=== PATIENT | male | born 1945 | race Caucasian/White ===

== ENCOUNTER 2017-02-04 09:45 | Emergency (ER) | payer MEDICARE, OTHER ==
[~2017-02-04] VITALS: Ht 177.8 cm; Wt 83.0 kg
[2017-02-04 10:05] VITALS: BP 136/72
[2017-02-04] MEDS ORDERED: TdaP Vaccine 0.5ml Syr IM ONE (10:15)
[2017-02-04 10:26] LABS: BASOPHILS % (AUTO) 1.1 % (0.0-2.0); EOSINOPHILS % (AUTO) 1.4 % (0.0-3.0); LYMPHOCYTES % (AUTO) 24.5 % (20.0-45.0); MEAN CORPUSCULAR HEMOGLOBIN 32.5 PG (27.0-31.0); MEAN CORPUSCULAR HGB CONC 32.7 G/DL (32.0-36.0); MEAN CORPUSCULAR VOLUME 99 FL (80-99); MEAN PLATELET VOLUME 7.6 FL (6.5-10.1); MONOCYTES % (AUTO) 8.1 % (1.0-10.0); NEUTROPHILS % (AUTO) 64.9 % (45.0-75.0); PLATELET COUNT 207 K/UL (150-450); RED BLOOD COUNT 4.79 M/UL (4.70-6.10); RED CELL DISTRIBUTION WIDTH 13.2 % (11.6-14.8); WHITE BLOOD COUNT 6.7 K/UL (4.8-10.8)
[2017-02-04 10:36] LABS: APPEARANCE,URINE CLEAR; INR 0.9 (0.9-1.1); KETONES,URINE NEGATIVE (NEGATIVE); LEUKOCYTE ESTERASE ,URINE NEGATIVE (NEGATIVE); NITRITE,URINE NEGATIVE (NEGATIVE); PH,URINE 6 (4.5-8.0); PROTEIN,URINE NEGATIVE (NEGATIVE); PROTHROMBIN TIME 9.4 SEC (9.30-11.50); UROBILINOGEN,URINE NORMAL MG/DL (0.0-1.0)
[2017-02-04 10:47] LABS: TROPONIN I < 0.30 ng/mL (<=0.30)
[2017-02-04 10:52] LABS: ALBUMIN/GLOBULIN RATIO 1.9 (1.0-2.7); CALCIUM 9.7 mg/dL (8.6-10.2); CREATININE 1.2 mg/dL (0.7-1.2); GLOMERULAR FILTRATION RATE 59.9 mL/min (>60); POTASSIUM 4.1 mEQ/L (3.4-4.9)
[2017-02-04] MEDS ORDERED: Bacitracin Oint UD TOPIC ONE (10:58)
--- NOTE | 2017-02-04 11:01 | Diagnostic Imaging Report ---
Indications: Fall, trauma, nasal injury, syncopal episode Technique: Spiral images obtained through the facial bones. No IV contrast utilized. Multiplanar reconstructions were generated.Total dose length product 719 mGycm. CTDIvol(s) 28mGy. Dose reduction achieved using automated exposure control Comparison: None Findings: No evidence of acute fracture. No worrisome sinus air-fluid levels are demonstrated. There is what appears to be a fracture through the root of the left second maxillary premolar. There is considerable lucency around the root of this tooth. There is considerable opacification of the left maxillary sinus, the majority of which is opacified with soft tissue. There is minimal mucosal thickening of the floor of the right maxillary sinus. The remaining sinuses are clear. There is minimal if any nasal soft tissue swelling. The remaining facial soft tissues are unremarkable. Impression: No acute bony trauma Acuity indeterminate fracture of the left second maxillary premolar. Surrounding lucency likely indicates loosening or periapical infection Left maxillary sinus disease. Minimal right maxillary sinus disease The CT scanner at [facility] is accredited by the [employer] and the scans are performed using protocols designed to limit radiation exposure to as low as reasonably achievable to attain images of sufficient resolution adequate for diagnostic evaluation.
[2017-02-04 11:02] LABS: CKMB 4.8 ng/mL (< 6.7)
[2017-02-04] MEDS ORDERED: Hydrogen Peroxide 120ml Bottle TOPIC ONE (11:02)
--- NOTE | 2017-02-04 11:04 | Diagnostic Imaging Report ---
Indication: FALL, near syncopal episode Technique: spiral acquisitions obtained through the brain. Angled axial and coronal 5 x 5 mm slices were reconstructed. No IV contrast utilized. Radiation dose was minimized using automated exposure control Total dose length product 1004 and 7 mGycm. CTDIvol(s) 70 mGy Comparison: none FINDINGS: No acute hemorrhage or edema. No mass effect or midline shift. There is minimal age-related enlargement of the ventricles and extra axial CSF spaces. Normal forbes-white differentiation. Visualized orbits are unremarkable. Intact calvarium. IMPRESSION: Chronic and age-related changes. Negative for acute intracranial bleed or mass effect The CT scanner at [facility] is accredited by the [employer] and the scans are performed using protocols designed to limit radiation exposure to as low as reasonably achievable to attain images of sufficient resolution adequate for diagnostic evaluation
--- NOTE | 2017-02-04 11:05 | Diagnostic Imaging Report ---
Indication: Chest pain Technique: One view of the chest Comparison: 04/01/2010 Findings: Lungs and pleural spaces are clear. Heart size is normal. Impression: No acute process
[2017-02-04 13:14] VITALS: BP 116/75
--- NOTE | 2017-02-04 13:18 | Emergency Room Report ---
History of Present Illness General Chief Complaint: Laceration Source: Patient Present Illness HPI This patient presents status post fall. She is accompanied by his . This morning around 5 AM the patient was walking out to his home office and his noticed that he was unsteady on his feet. Of note, the patient did drink a large amount of alcohol the night prior and did not get much sleep. Patient states he has bad insomnia and typically only gets 4 hours of sleep at night. He states it this morning he woke up at 2 AM and was unable to sleep. He states that on a daily basis he drinks a few shots of vodka prior to bedtime. The patient has no recollection of the event. He states that when he fell and she went to him he was awake but she did have to assist him up. He hit his face and shins the on the floor. He denies headache or neck pain. He denies back pain. He has never had a syncopal episode in the past. He is unsure if he fell and tripped or if he fainted. He denies chest pain. He was not ill yesterday. Denies abdominal pain. He has no other complaints. Allergies: Coded Allergies: No Known Allergies (Unverified , 02/04/17) Patient History Past Medical History: see triage record, DM, HTN Social History: Reports: alcohol use, Denies: drug use, smoking Reviewed Nursing Documentation: PMH: Agreed, PSxH: Agreed Nursing Documentation-PMH Past Medical History: No Stated History Review of Systems All Other Systems: negative except mentioned in HPI Physical Exam Vital Signs Date Time Temp Pulse Resp B/P Pulse Ox O2 Delivery O2 Flow Rate FiO2 02/04/17 09:53 97.5 65 20 130/68 96 Room Air Sp02 EP Interpretation: reviewed, normal General Appearance: no apparent distress, alert, GCS 15, non-toxic Head: normocephalic, other - 2 cm vertical laceration over bridge of the nose. Abrasion over R. upper lip. Contusion of lower lip. Eyes: bilateral eye PERRL, bilateral eye normal inspection ENT: hearing grossly normal, normal pharynx, no angioedema, normal voice Neck: full range of motion, supple/symm/no masses Respiratory: chest non-tender, lungs clear, normal breath sounds, speaking full sentences Cardiovascular #1: regular rate, rhythm, no edema Gastrointestinal: normal bowel sounds, non tender, soft, non-distended, no guarding, no rebound Rectal: deferred Musculoskeletal: back normal, gait/station normal, normal range of motion, non- tender Neurologic: alert, oriented x3, responsive, motor strength/tone normal, sensory intact, speech normal Psychiatric: judgement/insight normal, memory normal, mood/affect normal, no suicidal/homicidal ideation Skin: normal color, no rash, warm/dry, well hydrated, other - abrasions bilateral shins Procedures Laceration/Wound Repair Laceration/Wound Repair : Consent: Verbal Wound Location: face Wound's Depth, Shape: superficial Wound Length (cm): 2 Wound Explored: clean Irrigated w/ Saline (ccs): 200 Wound Repaired With: Dermabond Patient Tolerated: Well Complications: None Medical Decision Making Diagnostic Impression: Primary Impression: Syncope Additional Impressions: Fall Facial laceration Facial abrasion Closed head injury ER Course She presents to the fall. Am unsure whether this is a syncopal episode or a mechanical fall versus index of a mechanical fall and EtOH. Regardless, the patient is a high-risk for any arrhythmia. There was no obvious arrhythmia on EKG or telemetry although the patient does have sinus bradycardia. Laboratory workup to include CBC, CMP and cardiac enzymes were negative. The patient suffered a facial laceration that was repaired with Dermabond. He also has abrasions on his face and a contusion of his lip and some abrasions on his shins. He was given IV fluids. I had planned on giving him a second liter of IV fluids, however, the patient demanded to leave. I also planned to admit this patient for syncope and further cardiac workup. However, the patient left AGAINST MEDICAL ADVICE. The patient is flying to [place] this evening. I did educate the patient extensively and thoroughly that I could not be sure that this patient did not have a cardiac event. The patient and his both indicated understanding. The patient is also educated of the dangers of alcohol abuse and substance abuse. The patient was invited to return if he changed his mind. The patient is also found to have a cracked molar tooth. The patient reports that he lost his filling on this tooth previously. He has not been to a dentist at this time. I will give the patient a course of antibiotics for the pain. Patient was also instructed that he should have this followed up closely with a dentist. He indicated understanding. Labs Test 02/04/17 10:12 White Blood Count 6.7 K/UL (4.8-10.8) Red Blood Count 4.79 M/UL (4.70-6.10) Hemoglobin 15.6 G/DL (14.2-18.0) Hematocrit 47.6 % (42.0-52.0) Mean Corpuscular Volume 99 FL (80-99) Mean Corpuscular Hemoglobin 32.5 PG (27.0-31.0) Mean Corpuscular Hemoglobin Concent 32.7 G/DL (32.0-36.0) Red Cell Distribution Width 13.2 % (11.6-14.8) Platelet Count 207 K/UL (150-450) Mean Platelet Volume 7.6 FL (6.5-10.1) Neutrophils (%) (Auto) 64.9 % (45.0-75.0) Lymphocytes (%) (Auto) 24.5 % (20.0-45.0) Monocytes (%) (Auto) 8.1 % (1.0-10.0) Eosinophils (%) (Auto) 1.4 % (0.0-3.0) Basophils (%) (Auto) 1.1 % (0.0-2.0) Prothrombin Time 9.4 SEC (9.30-11.50) Prothromb Time International Ratio 0.9 (0.9-1.1) Activated Partial Thromboplast Time 25 SEC (23-33) Urine Color Pale yellow Urine Appearance Clear Urine pH 6 (4.5-8.0) Urine Specific Patterson 1.015 (1.005-1.035) Urine Protein Negative (NEGATIVE) Urine Glucose (UA) Negative (NEGATIVE) Urine Ketones Negative (NEGATIVE) Urine Occult Blood Negative (NEGATIVE) Urine Nitrite Negative (NEGATIVE) Urine Bilirubin Negative (NEGATIVE) Urine Urobilinogen Normal MG/DL (0.0-1.0) Urine Leukocyte Esterase Negative (NEGATIVE) Sodium Level 146 mEQ/L (135-145) Potassium Level 4.1 mEQ/L (3.4-4.9) Chloride Level 104 mEQ/L (98-107) Carbon Dioxide Level 28 mEQ/L (20-30) Anion Gap 14 (5-15) Blood Urea Nitrogen 15 mg/dL (7-23) Creatinine 1.2 mg/dL (0.7-1.2) Estimat Glomerular Filtration Rate 59.9 mL/min (>60) Glucose Level 132 mg/dL (74-106) Calcium Level 9.7 mg/dL (8.6-10.2) Total Bilirubin 0.2 mg/dL (0.0-1.2) Aspartate Amino Transf (AST/SGOT) 76 U/L (5-40) Alanine Aminotransferase (ALT/SGPT) 86 U/L (3-41) Alkaline Phosphatase 75 U/L (40-129) Total Creatine Kinase 128 U/L (38-174) Creatine Kinase MB 4.8 ng/mL (< 6.7) Creatine Kinase MB Relative Index 3.7 Troponin I < 0.30 ng/mL (<=0.30) Total Protein 7.0 g/dL (6.6-8.7) Albumin 4.6 g/dL (3.5-5.2) Globulin 2.4 g/dL Albumin/Globulin Ratio 1.9 (1.0-2.7) Serum Alcohol 230 mg/dL EKG Diagnostic Results Rate: normal ST Segments: no acute changes Other Impression S.bradycardia Rhythm Strip Diag. Results EP Interpretation: yes Rate: 50's Rhythm: no PVC's, no ectopy Other Impression S.bradycardia Chest X-Ray Diagnostic Results EP Interpretation: Yes Findings: no consolidation, no effusion, no pneumothorax, no acute cardiopulmonary disease Number of Views: 1 CT/MRI/US Diagnostic Results CT/MRI/US Diagnostic Results : Imaging Test Ordered: CT head, CT facial bones. Impression Impression: No acute bony trauma Acuity indeterminate fracture of the left second maxillary premolar. Surrounding lucency likely indicates loosening or periapical infection Left maxillary sinus disease. Minimal right maxillary sinus disease Last Vital Signs Date Time Temp Pulse Resp B/P Pulse Ox O2 Delivery O2 Flow Rate FiO2 02/04/17 10:20 57 13 Room Air 02/04/17 10:05 98.0 136/72 96 Disposition: AGAINST MEDICAL ADVICE Condition: Improved Referrals: NON PHYSICIAN (PCP) SAMPSON FELIZ D.O. Feb 04, 2017 13:18
[2017-02-04] MEDS ORDERED: CLINDAMYCIN HC300 MG ORAL (13:20)
--- NOTE | 2017-02-09 22:45 | Cardiology Report ---
APPROVED REPORT EKG Measurement Heart [id number] AL [id number] Sinus bradycardia with sinus arrhythmia Cannot rule out Anterior infarct, age undetermined Abnormal ECG
== END 2017-02-04 13:31 | disposition left against medical advice (07) ==
LOC: EMR 10:10
DX: R55 Syncope and collapse (principal); S01.21XA Laceration without foreign body of nose, initial encounter; W19.XXXA Unspecified fall, initial encounter; S00.511A Abrasion of lip, initial encounter; S80.812A Abrasion, left lower leg, initial encounter; S80.811A Abrasion, right lower leg, initial encounter; S00.531A Contusion of lip, initial encounter; Y92.018 Other place in single-family (private) house as the place of occurrence of the external cause; E11.9 Type 2 diabetes mellitus without complications; I10 Essential (primary) hypertension; F10.10 Alcohol abuse, uncomplicated
CPT/HCPCS: 12011; 36415; 70450; 70486; 71010; 80053; 81003; 82550; 82553; 82962; 84484; 85025; 85610; 85730; 90471; 90715; 93005; 96372; 96374; 99284; G0480; 80329

== ENCOUNTER 2018-11-02 17:54 | Inpatient (IN) | payer MEDICARE ==
[~2018-11-02] VITALS: Ht 177.8 cm; Wt 81.6 kg
[~2018-11-02 17:54] MED LIST: CLINDAMYCIN HC300 MG ORAL
[2018-11-02 18:08] VITALS: BP 155/87
--- NOTE | 2018-11-02 18:08 | NUR ---
ED Nurse Note: a/ox4. ambulated in to ER from home due more urination urgency and burning sensation when urinating since 10/30/18. Urine collected.
--- NOTE | 2018-11-02 18:39 | NUR ---
ED Nurse Note: notified Dr. Pelaez about pt's rectal temp of 101. 7F. All blood specimens and urine sent down.
[2018-11-02 18:40] LABS: APPEARANCE,URINE CLOUDY; BILIRUBIN, URINE NEGATIVE (NEGATIVE); COLOR,URINE PALE YELLOW; GLUCOSE, URINE (UA) NEGATIVE (NEGATIVE); KETONES,URINE 3+ (NEGATIVE); LEUKOCYTE ESTERASE ,URINE 3+ (NEGATIVE); NITRITE,URINE NEGATIVE (NEGATIVE); PH,URINE 8 (4.5-8.0); PROTEIN,URINE 3+ (NEGATIVE); UROBILINOGEN,URINE NORMAL MG/DL (0.0-1.0)
[2018-11-02 18:53] LABS: BASOPHILS % (AUTO) 1.5 % (0.0-2.0); HEMATOCRIT 47.9 % (42.0-52.0); HEMOGLOBIN 16.6 G/DL (14.2-18.0); LYMPHOCYTES % (AUTO) 5.6 % (20.0-45.0); MEAN CORPUSCULAR VOLUME 95 FL (80-99); MONOCYTES % (AUTO) 8.9 % (1.0-10.0); PLATELET COUNT 180 K/UL (150-450); RED BLOOD COUNT 5.04 M/UL (4.70-6.10); RED CELL DISTRIBUTION WIDTH 11.7 % (11.6-14.8); WHITE BLOOD COUNT 13.1 K/UL (4.8-10.8)
[2018-11-02 18:54] LABS: ANION GAP 16 mmol/L (5-15); BLOOD UREA NITROGEN 39 mg/dL (7-18); CALCIUM 9.6 MG/DL (8.5-10.1); CARBON DIOXIDE 23 MMOL/L (21-32); CHLORIDE 93 MMOL/L (98-107); CREATININE 1.7 MG/DL (0.55-1.30); POTASSIUM 4.4 MMOL/L (3.5-5.1); SODIUM 132 MMOL/L (136-145)
[2018-11-02 18:59] LABS: ALANINE AMINOTRANSFERASE 47 U/L (12-78); ALBUMIN 3.7 G/DL (3.4-5.0); ALBUMIN/GLOBULIN RATIO 0.7 (1.0-2.7); ALKALINE PHOSPHATASE 97 U/L (46-116); ASPARTATE AMINO TRANSFERASE 32 U/L (15-37); BILIRUBIN,TOTAL 0.7 MG/DL (0.2-1.0)
[2018-11-02] MEDS ORDERED: CEPHALEXIN500 MG ORAL (19:05)
--- NOTE | 2018-11-02 19:10 | NUR ---
HAND-OFF: Report given to KAREEM JOHNSON. NO S/S OF DISTRESS. ENDORSED TO ELIZABETH SERNA THAT PT'S LACTIC ACID IS HIGH AND WILL NEED LACTIC REFLEX. ALSO ENDORSED THAT PT'S RECTAL TEMP WA 101.7F EARLIER AND TYLENOL WAS GIVEN.
[2018-11-02] MEDS ORDERED: cefTRIAXone 1 GM in NS 55 ML IVPB ONE (19:15)
--- NOTE | 2018-11-02 19:15 | NUR ---
ED Nurse Note: RECIEVED PT ON [facility] AWAKE, ALERT AND ORIENTED X 4, PT HERE WAITING FOR RESULTS AND DISPOSITION, PT IS AMBULATORY, HAS PATENT SALINE LOCK IN LEFT AC, V/S STBLE, HAS MILD PAIN AT 4/10 AND DECLINES MEDS, WILL RESUSME CARE ORDERED AND CLOSELY MONITOR.
[2018-11-02 20:30] VITALS: BP 158/73
--- NOTE | 2018-11-02 20:36 | Emergency Room Report ---
History of Present Illness General Chief Complaint: Male Urogenital Problems Source: Patient Present Illness HPI 73-year-old male presenting with dehydration, urinary frequency, burning on urination. Denying extremely weak. No fever no chills. No abdominal pain. Allergies: Coded Allergies: No Known Allergies (Unverified , 02/04/17) Patient History Past Medical History: see triage record Past Surgical History: none Pertinent Family History: none Reviewed Nursing Documentation: PMH: Agreed; PSxH: Agreed Review of Systems All Other Systems: negative except mentioned in HPI Physical Exam Vital Signs Date Time Temp Pulse Resp B/P (MAP) Pulse Ox O2 Delivery O2 Flow Rate FiO2 11/02/18 18:03 100.0 96 20 157/91 95 Room Air Sp02 EP Interpretation: reviewed, normal General Appearance: alert, GCS 15, non-toxic, mild distress Head: normocephalic, atraumatic Eyes: bilateral eye normal inspection, bilateral eye PERRL, bilateral eye EOMI ENT: normal ENT inspection, normal pharynx, normal voice, moist mucus membranes Neck: normal inspection, full range of motion, supple Respiratory: normal inspection, lungs clear, normal breath sounds, no respiratory distress, no retraction, no wheezing, speaking full sentences, chest symmetrical Cardiovascular #1: normal inspection, regular rate, rhythm, no edema, normal capillary refill Cardiovascular #2: 2+ radial (R), 2+ radial (L) Gastrointestinal: normal inspection, non tender, soft, non-distended, no guarding Genitourinary: no CVA tenderness Musculoskeletal: normal inspection, back normal, normal range of motion, non- tender Neurologic: normal inspection, alert, oriented x3, responsive, motor strength/ tone normal, sensory intact, normal gait, speech normal Psychiatric: normal inspection, judgement/insight normal, memory normal Skin: normal inspection, normal color, no rash, warm/dry, well hydrated, normal turgor Medical Decision Making Diagnostic Impression: Primary Impression: Renal insufficiency Additional Impression: UTI (urinary tract infection) ER Course 73-year-old male dehydration, urinary frequency DDX: dehydration, R disturbance, UTI, pyelonephritis Plan: Obtain labs, ua, EKG, CXR ER course: Patient has been monitored during ED stay, HD stable given fluids and abx Disposition: Patient is to be admitted to [facility] D/W hospitalist Dr Willoughby Please note that this Emergency Department Report was dictated using 24tidypacking room worker technology software, occasionally this can lead to erroneous entry secondary to interpretation by the dictation equipment. Rhythm Strip EP Interpretation: Yes Rate: 97 Rhythm: NSR, no PVCs, no ectopy Chest X-ray CXR: Ordered: Yes 1 view Indication:pain EP interpretation: Yes Interpretation: No consolidation, no effusion, no PTX, no acute cardiopulmonary disease Impression: No acute disease Electronically signed by Omero Pelaez MD Last Vital Signs Date Time Temp Pulse Resp B/P (MAP) Pulse Ox O2 Delivery O2 Flow Rate FiO2 11/02/18 18:08 101.7 91 14 155/87 96 Room Air Disposition: ADMITTED INPATIENT Condition: Serious Scripts Cephalexin* (KEFLEX*) 500 Mg Capsule 500 MG ORAL EVERY 6 HOURS for 7 Days, #28 CAP Prov: Omero Pelaez M.D. 11/02/18 Referrals: NON PHYSICIAN (PCP) Patient Instructions: Urinary Tract Infection Additional Instructions: PLEASE SEE YOUR PCP IN 2-3 DAYS Omero Pelaez M.D. Nov 02, 2018 20:35
--- NOTE | 2018-11-02 20:45 | NUR ---
ED Nurse Note: PT COMPLETED IV ANTIBIOTICS, TOLERATED WELL, NO S/S OF ADVERSE REACTION NOTED, PT REPEAT LACTIC SENT TO LAB, V/S STABLE, PT TEMP HAS DECREASED, PT TO BE ADMITTED, WILL CONTINUE TO CLOSELY MONITOR WHILE WAITING FOR DISPO INFORMATION.
--- NOTE | 2018-11-02 21:54 | NUR ---
ED Nurse Note: PT BEING ADMITTED TO FLOOR UNIT, REPORT CALLED TO NURSE PETE RN, PT IN BED AWAKE AND ALERT, NO CP OR SOB, BELONGINGS LIST COMPLETED, V/S STABLE, NAD NOTED DURING TRANSPORT TO FLOOR BED.
[2018-11-02] MEDS: D5NS 1,000 ML IV SCH (22:15)
[2018-11-02] MEDS ORDERED: Acetaminophen 500mg (ES) tab ORAL PRN (23:15)
--- NOTE | 2018-11-02 23:41 | NUR ---
NURSE NOTES: Patient admitted to room 309-2. Patient is ambulatory. VSS. Admission orders from MD noted and carried out. Belongings list accounted for. No signs of distress noted. Needs attended. Call light within reach. In stable condition.
[2018-11-03] VITALS (7 sets, daily range): BP systolic 135–179; BP diastolic 76–96
[2018-11-03 06:26] LABS: BASOPHILS % (AUTO) 2.4 % (0.0-2.0); HEMATOCRIT 42.8 % (42.0-52.0); HEMOGLOBIN 14.8 G/DL (14.2-18.0); LYMPHOCYTES % (AUTO) 7.3 % (20.0-45.0); MEAN CORPUSCULAR VOLUME 94 FL (80-99); MONOCYTES % (AUTO) 13.4 % (1.0-10.0); NEUTROPHILS % (AUTO) 76.9 % (45.0-75.0); PLATELET COUNT 154 K/UL (150-450); RED BLOOD COUNT 4.53 M/UL (4.70-6.10); RED CELL DISTRIBUTION WIDTH 11.1 % (11.6-14.8); WHITE BLOOD COUNT 7.3 K/UL (4.8-10.8)
[2018-11-03 07:09] LABS: ALANINE AMINOTRANSFERASE 41 U/L (12-78); ALBUMIN 3.3 G/DL (3.4-5.0); ALBUMIN/GLOBULIN RATIO 0.7 (1.0-2.7); ALKALINE PHOSPHATASE 78 U/L (46-116); ANION GAP 11 mmol/L (5-15); ASPARTATE AMINO TRANSFERASE 30 U/L (15-37); BILIRUBIN,TOTAL 0.5 MG/DL (0.2-1.0); BLOOD UREA NITROGEN 44 mg/dL (7-18); CALCIUM 8.9 MG/DL (8.5-10.1); CARBON DIOXIDE 24 MMOL/L (21-32); CHLORIDE 96 MMOL/L (98-107); CHOLESTEROL 155 MG/DL (< 200); CREATININE 1.5 MG/DL (0.55-1.30); FERRITIN 1383 NG/ML (8-388); GAMMA GLUTAMYL TRANSPEPTIDASE 34 U/L (5-85); HDL CHOLESTEROL 54 MG/DL (40-60); PHOSPHORUS 1.5 MG/DL (2.5-4.9); POTASSIUM 4.1 MMOL/L (3.5-5.1); SODIUM 131 MMOL/L (136-145); TRIGLYCERIDES 126 MG/DL (30-150)
[2018-11-03 07:33] LABS: % IRON SATURATION 19 % (15-50); IRON 39 ug/dL (50-175); TOTAL IRON BINDING CAPACITY 207 ug/dL (250-450)
--- NOTE | 2018-11-03 08:30 | NUR ---
NURSE NOTES: Received patient on bed, awake. IV site intact and patent. Bed in low and locked position, call light within reach. No signs of respiratory distress, patient denies pain. Room board updated, will continue to monitor.
--- NOTE | 2018-11-03 09:03 | NUR ---
NURSE NOTES: Contacted MD Kahn for patient blood pressure reading. SBP is 179. ordered clonididne Q6 hours PRN.
--- NOTE | 2018-11-03 11:00 | NUR ---
NURSE NOTES: Patient blood pressure is now 135/76 after clonidine administration.
--- NOTE | 2018-11-03 11:30 | Diagnostic Imaging Report ---
Indication: Chest pain Technique: One view of the chest Comparison: For 10/14/2017 Findings: Lungs and pleural spaces are clear. Heart size is normal . No significant interim change Impression: No acute process
[2018-11-03] MEDS: D5NS 1,000 ML IV SCH (11:35)
--- NOTE | 2018-11-03 17:28 | NUR ---
NURSE NOTES: IV removed. Left arm slighty edematous. Ice pack placed over former IV site. patient reports no pain or numbness or loss of feeling. Charge nurse is aware. Will continue to monitor closely.
[2018-11-03] MEDS ORDERED: HydrALAZINE 25mg tab ORAL PRN (18:00)
[2018-11-03] MEDS ORDERED: Allopurinol 100mg Tab ORAL SCH (18:00)
--- NOTE | 2018-11-03 18:02 | Consultation ---
Consult Note Consult Note asked to eval for elevated Cr 73-year-old male presenting with dehydration, urinary frequency, burning on urination. Denying extremely weak. No fever no chills. No abdominal pain. No Known Allergies (Unverified , 02/04/17) Vital Signs Date Time Temp Pulse Resp B/P (MAP) Pulse Ox O2 Delivery O2 Flow Rate FiO2 11/02/18 18:03 100.0 96 20 157/91 95 Room Air Sp02 EP Interpretation: reviewed, normal General Appearance: alert, GCS 15, non-toxic, mild distress Head: normocephalic, atraumatic Eyes: bilateral eye normal inspection, bilateral eye PERRL, bilateral eye EOMI ENT: normal ENT inspection, normal pharynx, normal voice, moist mucus membranes Neck: normal inspection, full range of motion, supple Respiratory: normal inspection, lungs clear, normal breath sounds, no respiratory distress, no retraction, no wheezing, speaking full sentences, chest symmetrical Cardiovascular #1: normal inspection, regular rate, rhythm, no edema, normal capillary refill Cardiovascular #2: 2+ radial (R), 2+ radial (L) Gastrointestinal: normal inspection, non tender, soft, non-distended, no guarding Genitourinary: no CVA tenderness Musculoskeletal: normal inspection, back normal, normal range of motion, non- tender Neurologic: normal inspection, alert, oriented x3, responsive, motor strength/ tone normal, sensory intact, normal gait, speech normal Psychiatric: normal inspection, judgement/insight normal, memory normal Skin: normal inspection, normal color, no rash, warm/dry, well hydrated, normal turgor data reviewed Assessment/Plan Renal insufficiency, acute on Chronic UTI (urinary tract infection / High Lactic HypoNatremia HTN Low Phos Low folate Low Albumin Na Phos IV PO Folic acid Protonix Norvasc NS IV Monitor renal parameters avoid Nephrotoxics urine studies Claus Valle MD Nov 03, 2018 18:02
--- NOTE | 2018-11-03 19:30 | NUR ---
NURSE NOTES: Received report from outgoing RN Velasquez. Pt A&O x4 laying semi fowlers in bed. No signs of pain or distress. IV RAC 22g dry & intact. Call light in reach, bed in lowest position, side rails up x 2. Will continue to monitor pt.
--- NOTE | 2018-11-03 19:30 | NUR ---
HAND-OFF: Report given to KAREEM Subramanian.
[2018-11-03] MEDS ORDERED: Sodium Phosphate 30 MM in NS 275 ML IVPB ONE (20:00)
--- NOTE | 2018-11-03 21:00 | Consultation ---
DATE OF CONSULTATION: 11/03/2018 INFECTIOUS DISEASE CONSULT: CONSULTING PHYSICIAN: Saulo Munoz M.D. PRIMARY ATTENDING: Freddie Kahn M.D. REASON FOR CONSULT: UTI. HISTORY OF PRESENT ILLNESS: This is a 73-year-old white male admitted last night complaining of difficulty of passing urine that happened suddenly. The patient has urinary frequency, burning in urination, have to push to urinate. Has leukocytosis of 15.1 at the time of admission and has elevation of BUN and creatinine and lactic acidosis. PAST MEDICAL HISTORY: Insignificant. Likely had hypertension, but does not take any medications at home. ALLERGIES: No known drug allergies. MEDICATIONS: Getting clonidine, Tylenol, D5 normal saline. Got a dose of ceftriaxone in the ER. SOCIAL HISTORY: . No history of smoking and drug abuse. Social drinking. REVIEW OF SYSTEMS: Fever of 101.7 last night. No sore throat. No coughing. No nausea. No vomiting. No abdominal pain. No difficulty of walking. PHYSICAL EXAMINATION: VITAL SIGNS: Temperature 98, pulse 68, blood pressure 135/77. GENERAL APPEARANCE: No acute distress. Awake, alert, and oriented x3. HEAD AND NECK: Lyerly conjunctivae. No oral lesion. HEART: Normal rate. LUNGS: Clear. ABDOMEN: Obese, soft, and nontender. EXTREMITIES: No edema. LABORATORY AND DIAGNOSTIC DATA: Sodium 131, potassium 4.1, chloride 96, bicarbonate 24, BUN 44, and creatinine 1.5. Lactic acid was 4.3 at the time of admission came down to 1.8. Albumin is 3.3. WBC at the time of admission 13.1 came down to 7.3, hemoglobin 14.8, hematocrit 42.8, and platelets 154. Urine culture growing gram-negative rods. IMPRESSION: Sepsis with fever, leukocytosis. Source of infection seems to be UTI. The patient has lactic acidosis, acute renal failure. RECOMMENDATION: Continue Rocephin. Continue hydration. Consider urologic evaluation for prostatic hypertrophy. At the end of my exam, I thank Dr. Kahn for involving me in the care of this patient. Saulo Munoz M.D. DR: ROLANDO JOB#: [id number] CC:
[2018-11-03] MEDS: cefTRIAXone 1 GM in D5W 55 ML IVPB SCH (21:22)
[2018-11-03] MEDS: Tamsulosin 0.4mg cap ORAL SCH (21:22)
[2018-11-04] VITALS: BP 137/81
--- NOTE | 2018-11-04 | NUR ---
HAND-OFF: Report given to .
[2018-11-04] MEDS: D5NS 1,000 ML IV SCH ×2 (00:55→15:04)
--- NOTE | 2018-11-04 03:15 | History and Physical Report ---
DATE OF ADMISSION: 11/02/2018 HISTORY OF PRESENT ILLNESS: The patient was admitted for urinary tract infection. The patient was complaining of increased urinary frequency. The patient also did have some chills and fever. He was admitted for urinary tract infection, renal insufficiency and dehydration. The patient also had decreased urine and complaining of dysuria. Denies shortness of breath. Denies cough. Denies nausea, vomiting, and diarrhea. PAST MEDICAL HISTORY: Significant for BPH and GERD. PAST SURGICAL HISTORY: None. ALLERGIES: Penicillin. MEDICATIONS: None. FAMILY HISTORY: Noncontributory. SOCIAL HISTORY: No history of smoking. Denies alcohol or illicit drugs. REVIEW OF SYSTEMS: HEENT: Denies headaches. RESPIRATORY: Denies shortness of breath. Denies cough. CARDIOVASCULAR: Denies chest pain. Denies orthopnea. GASTROINTESTINAL: Denies nausea, vomiting, or diarrhea. EXTREMITIES: Denies pain. CENTRAL NERVOUS SYSTEM: Denies change in vision or speech pattern. GENITOURINARY: Complains of 02:09 . PHYSICAL EXAMINATION: VITAL SIGNS: Temperature 97.8, pulse is 86, blood pressure 179/96. HEENT: PERRLA. NECK: Supple. No lymphadenopathy. CHEST: Clear to auscultation. CARDIOVASCULAR: Regular rate and rhythm. No extra sounds. GASTROINTESTINAL: Soft nontender, nondistended. No organomegaly. EXTREMITIES: No edema. Moves all four extremities. Sensory intact to light touch. Reflexes equal on both sides. Moves all four extremities. LABORATORY DATA: Significant for urinary tract infection. WBC of 13.1, hemoglobin 16.6, and platelets of 180. Sodium 131, potassium 4.1, BUN of 44, creatinine 1.4, and glucose of 173. ASSESSMENT: 1. Urinary tract infection. 2. Hypertension. 3. Hyponatremia. 4. Azotemia. I have asked Dr. Saulo Munoz to see the patient for the above-mentioned diagnoses and treatment. Freddie Kahn M.D. DR: Bacilio JOB#: [id number] CC:
[2018-11-04 04:00] VITALS: BP 143/80
[2018-11-04 06:01] LABS: HEMATOCRIT 45.5 % (42.0-52.0); HEMOGLOBIN 15.6 G/DL (14.2-18.0); MEAN CORPUSCULAR VOLUME 95 FL (80-99); PLATELET COUNT 157 K/UL (150-450); RED CELL DISTRIBUTION WIDTH 11.9 % (11.6-14.8); WHITE BLOOD COUNT 5.8 K/UL (4.8-10.8)
[2018-11-04 06:27] LABS: ALANINE AMINOTRANSFERASE 36 U/L (12-78); ALBUMIN 3.1 G/DL (3.4-5.0); ALBUMIN/GLOBULIN RATIO 0.7 (1.0-2.7); ALKALINE PHOSPHATASE 71 U/L (46-116); ANION GAP 11 mmol/L (5-15); ASPARTATE AMINO TRANSFERASE 27 U/L (15-37); BILIRUBIN,TOTAL 0.5 MG/DL (0.2-1.0); BLOOD UREA NITROGEN 31 mg/dL (7-18); CALCIUM 8.8 MG/DL (8.5-10.1); CARBON DIOXIDE 27 MMOL/L (21-32); CHLORIDE 100 MMOL/L (98-107); CREATININE 1.3 MG/DL (0.55-1.30); PHOSPHORUS 3.7 MG/DL (2.5-4.9); POTASSIUM 3.7 MMOL/L (3.5-5.1); SODIUM 138 MMOL/L (136-145)
--- NOTE | 2018-11-04 07:32 | NUR ---
NURSE NOTES: Received report from KAREEM Borden. Rounding done with outgoing nurse. Patient a/o x4 and denies any pain at this time. Bed in lowest position and call light within reach. Will continue to monitor.
--- NOTE | 2018-11-04 07:37 | NUR ---
HAND-OFF: Report given to Shahnaz RN. Pt is stable.
[2018-11-04 08:00] VITALS: BP 140/73
[2018-11-04] MEDS ORDERED: Allopurinol 100mg Tab ORAL SCH (09:00)
--- NOTE | 2018-11-04 10:56 | Infectious Diseases Prog Note ---
Assessment/Plan Assessment/Plan A; Proteus UTI Acute renal failure improving HPN P: Continue Rocephin At time of discharge will change to antibiotic Subjective ROS Limited/Unobtainable: Yes Constitutional: Reports: other - no fever Allergies: Coded Allergies: No Known Allergies (Unverified , 02/04/17) Objective Vital Signs Last 24 Hour Vital Signs Date Time Temp Pulse Resp B/P (MAP) Pulse Ox O2 Delivery O2 Flow Rate FiO2 11/04/18 10:06 73 140/73 11/04/18 09:00 Room Air 11/04/18 08:00 99.0 73 16 140/73 (95) 96 11/04/18 04:00 98.8 65 18 143/80 (101) 97 11/04/18 00:00 99.2 77 18 137/81 (99) 98 11/03/18 21:00 Room Air 11/03/18 20:00 98.4 19 168/91 (116) 98 11/03/18 16:00 98.6 70 19 144/85 (104) 11/03/18 12:00 98.0 68 18 135/77 (96) 97 11/03/18 11:00 135/76 (95) Height (Feet): 5 Height (Inches): 10.00 Weight (Pounds): 180 General Appearance: no acute distress HEENT: mucous membranes moist Respiratory/Chest: lungs clear Cardiovascular: normal rate Abdomen: soft, non tender Extremities: no edema Neurologic/Psychiatric: other - sleeping Microbiology Date/Time Source Procedure Growth Status 11/02/18 18:35 Blood Blood Culture - Preliminary NO GROWTH AFTER 24 HOURS Resulted 11/02/18 18:20 Blood Blood Culture - Preliminary NO GROWTH AFTER 24 HOURS Resulted 11/02/18 18:20 Urine,Clean Catch Urine Culture - Final Proteus Mirabilis Complete Laboratory Tests Test 11/03/18 20:20 11/04/18 05:30 Urine Random Sodium 48 mmol/L (20-110) White Blood Count 5.8 K/UL (4.8-10.8) Red Blood Count 4.80 M/UL (4.70-6.10) Hemoglobin 15.6 G/DL (14.2-18.0) Hematocrit 45.5 % (42.0-52.0) Mean Corpuscular Volume 95 FL (80-99) Mean Corpuscular Hemoglobin 32.5 PG (27.0-31.0) H Mean Corpuscular Hemoglobin Concent 34.2 G/DL (32.0-36.0) Red Cell Distribution Width 11.9 % (11.6-14.8) Platelet Count 157 K/UL (150-450) Mean Platelet Volume 7.8 FL (6.5-10.1) Neutrophils (%) (Auto) % (45.0-75.0) Lymphocytes (%) (Auto) % (20.0-45.0) Monocytes (%) (Auto) % (1.0-10.0) Eosinophils (%) (Auto) % (0.0-3.0) Basophils (%) (Auto) % (0.0-2.0) Sodium Level 138 MMOL/L (136-145) Potassium Level 3.7 MMOL/L (3.5-5.1) Chloride Level 100 MMOL/L (98-107) Carbon Dioxide Level 27 MMOL/L (21-32) Anion Gap 11 mmol/L (5-15) Blood Urea Nitrogen 31 mg/dL (7-18) H Creatinine 1.3 MG/DL (0.55-1.30) Estimat Glomerular Filtration Rate mL/min (>60) Glucose Level 146 MG/DL (74-106) H Uric Acid 7.0 MG/DL (2.6-7.2) Calcium Level 8.8 MG/DL (8.5-10.1) Phosphorus Level 3.7 MG/DL (2.5-4.9) Magnesium Level 2.3 MG/DL (1.8-2.4) Total Bilirubin 0.5 MG/DL (0.2-1.0) Aspartate Amino Transf (AST/SGOT) 27 U/L (15-37) Alanine Aminotransferase (ALT/SGPT) 36 U/L (12-78) Alkaline Phosphatase 71 U/L (46-116) Pro-B-Type Natriuretic Peptide 233 pg/mL (0-125) H Total Protein 7.5 G/DL (6.4-8.2) Albumin 3.1 G/DL (3.4-5.0) L Globulin 4.4 g/dL Albumin/Globulin Ratio 0.7 (1.0-2.7) L Current Medications Medications (Trade) Dose Ordered Sig/Luisa Route PRN Reason Start Time Stop Time Status Last Admin Dose Admin Acetaminophen (Tylenol) 500 mg Q4H PRN ORAL Mild Pain/Temp > 100.5 11/02/18 23:15 12/02/18 23:14 11/03/18 05:19 Allopurinol (Zyloprim) 200 mg DAILY ORAL 11/04/18 09:00 12/04/18 08:59 11/04/18 10:06 Amlodipine Besylate (Norvasc) 5 mg DAILY ORAL 11/04/18 09:00 12/04/18 08:59 11/04/18 10:06 Ceftriaxone Sodium 1 gm/ Dextrose 55 ml @ 110 mls/hr Q24H IVPB 11/03/18 20:00 11/10/18 19:59 11/03/18 21:22 Dextrose/Sodium Chloride 1,000 ml @ 75 mls/hr [id number] IV 11/02/18 22:15 12/02/18 22:14 11/04/18 00:55 Folic Acid (Folate) 3 mg DAILY ORAL 11/03/18 19:30 12/03/18 19:29 11/04/18 10:06 Hydralazine HCl (Apresoline) 25 mg Q4H PRN ORAL bp over 160 syst 11/03/18 18:00 12/03/18 17:59 Pantoprazole (Protonix) 40 mg EVERY 12 HOURS ORAL 11/03/18 21:00 12/03/18 20:59 11/04/18 10:05 Tamsulosin HCl (Flomax) 0.4 mg BEDTIME ORAL 11/03/18 21:00 12/03/18 20:59 11/03/18 21:22 Saulo Munoz MD Nov 04, 2018 10:56
--- NOTE | 2018-11-04 11:56 | Nephrology Progress Note ---
Assessment/Plan Problem List: (1) Renal insufficiency (2) UTI (urinary tract infection) Assessment: Proteus (3) Hyponatremia (4) Folic acid deficiency Assessment Renal insufficiency, acute on Chronic UTI (urinary tract infection / High Lactic: proteus HypoNatremia HTN Low Phos Low folate Low Albumin Plan Na Phos IV PO Folic acid Protonix Norvasc NS IV Monitor renal parameters avoid Nephrotoxics urine studies Subjective ROS Limited/Unobtainable: No Objective Objective Last 24 Hour Vital Signs Date Time Temp Pulse Resp B/P (MAP) Pulse Ox O2 Delivery O2 Flow Rate FiO2 11/04/18 10:06 73 140/73 11/04/18 09:00 Room Air 11/04/18 08:00 99.0 73 16 140/73 (95) 96 11/04/18 04:00 98.8 65 18 143/80 (101) 97 11/04/18 00:00 99.2 77 18 137/81 (99) 98 11/03/18 21:00 Room Air 11/03/18 20:00 98.4 19 168/91 (116) 98 11/03/18 16:00 98.6 70 19 144/85 (104) 11/03/18 12:00 98.0 68 18 135/77 (96) 97 Intake and Output 11/03/18 11/04/18 18:59 06:59 Intake Total 1805 ml 600 ml Balance 1805 ml 600 ml Intake Oral 1205 ml 600 ml IV Total 600 ml # Voids 3 6 # Bowel Movements 1 3 Laboratory Tests 11/03/18 20:20: Urine Random Sodium 48 11/04/18 05:30: White Blood Count 5.8, Red Blood Count 4.80, Hemoglobin 15.6, Hematocrit 45.5, Mean Corpuscular Volume 95, Mean Corpuscular Hemoglobin 32.5H, Mean Corpuscular Hemoglobin Concent 34.2, Red Cell Distribution Width 11.9, Platelet Count 157, Mean Platelet Volume 7.8, Neutrophils (%) (Auto) , Lymphocytes (%) (Auto) , Monocytes (%) (Auto) , Eosinophils (%) (Auto) , Basophils (%) (Auto) , Sodium Level 138, Potassium Level 3.7, Chloride Level 100, Carbon Dioxide Level 27, Anion Gap 11, Blood Urea Nitrogen 31H, Creatinine 1.3, Estimat Glomerular Filtration Rate , Glucose Level 146H, Uric Acid 7.0, Calcium Level 8.8, Phosphorus Level 3.7, Magnesium Level 2.3, Total Bilirubin 0.5, Aspartate Amino Transf (AST/SGOT) 27, Alanine Aminotransferase (ALT/SGPT) 36, Alkaline Phosphatase 71, Pro-B-Type Natriuretic Peptide 233H, Total Protein 7.5, Albumin 3.1L, Globulin 4.4, Albumin/Globulin Ratio 0.7L Height (Feet): 5 Height (Inches): 10.00 Weight (Pounds): 180 General Appearance: no apparent distress Cardiovascular: normal rate Respiratory/Chest: lungs clear Abdomen: soft Objective no change Claus Valle MD Nov 04, 2018 11:56
[2018-11-04 12:00] VITALS: BP 157/84
[2018-11-04 16:00] VITALS: BP 148/80
--- NOTE | 2018-11-04 19:25 | NUR ---
HAND-OFF: Report given to KAREEM Preston. Patient in stable condition.
[2018-11-04 20:00] VITALS: BP 142/71
[2018-11-04] MEDS: cefTRIAXone 1 GM in D5W 55 ML IVPB SCH (21:04)
--- NOTE | 2018-11-04 21:13 | General Progress Note ---
Assessment/Plan Problem List: (1) UTI (urinary tract infection) ICD Codes: N39.0 - Urinary tract infection, site not specified SNOMED: 39604207, 246799481 (2) Renal insufficiency ICD Codes: N28.9 - Disorder of kidney and ureter, unspecified SNOMED: 204557503, [id number] Status: progressing Assessment/Plan afebrile uti dysurea is improving abx per id azotemai Subjective ROS Limited/Unobtainable: Yes Allergies: Coded Allergies: No Known Allergies (Unverified , 02/04/17) Objective Last 24 Hour Vital Signs Date Time Temp Pulse Resp B/P (MAP) Pulse Ox O2 Delivery O2 Flow Rate FiO2 11/04/18 17:31 66 148/80 11/04/18 16:00 99.5 66 16 148/80 (102) 97 11/04/18 12:00 97.6 73 16 157/84 (108) 100 11/04/18 10:06 73 140/73 11/04/18 09:00 Room Air 11/04/18 08:00 99.0 73 16 140/73 (95) 96 11/04/18 04:00 98.8 65 18 143/80 (101) 97 11/04/18 00:00 99.2 77 18 137/81 (99) 98 Intake and Output 11/03/18 11/04/18 19:00 07:00 Intake Total 1805 ml 600 ml Balance 1805 ml 600 ml Intake Oral 1205 ml 600 ml IV Total 600 ml # Voids 3 6 # Bowel Movements 1 3 Laboratory Tests 11/04/18 05:30: White Blood Count 5.8, Red Blood Count 4.80, Hemoglobin 15.6, Hematocrit 45.5, Mean Corpuscular Volume 95, Mean Corpuscular Hemoglobin 32.5H, Mean Corpuscular Hemoglobin Concent 34.2, Red Cell Distribution Width 11.9, Platelet Count 157, Mean Platelet Volume 7.8, Neutrophils (%) (Auto) , Lymphocytes (%) (Auto) , Monocytes (%) (Auto) , Eosinophils (%) (Auto) , Basophils (%) (Auto) , Sodium Level 138, Potassium Level 3.7, Chloride Level 100, Carbon Dioxide Level 27, Anion Gap 11, Blood Urea Nitrogen 31H, Creatinine 1.3, Estimat Glomerular Filtration Rate , Glucose Level 146H, Uric Acid 7.0, Calcium Level 8.8, Phosphorus Level 3.7, Magnesium Level 2.3, Total Bilirubin 0.5, Aspartate Amino Transf (AST/SGOT) 27, Alanine Aminotransferase (ALT/SGPT) 36, Alkaline Phosphatase 71, Pro-B-Type Natriuretic Peptide 233H, Total Protein 7.5, Albumin 3.1L, Globulin 4.4, Albumin/Globulin Ratio 0.7L Height (Feet): 5 Height (Inches): 10.00 Weight (Pounds): 180 Cardiovascular: normal rate Respiratory/Chest: lungs clear Abdomen: soft Freddie Kahn MD Nov 04, 2018 21:13
[2018-11-04] MEDS: Tamsulosin 0.4mg cap ORAL SCH (21:31)
[2018-11-05] VITALS: BP 165/93
--- NOTE | 2018-11-05 | NUR ---
NURSE NOTES: Received report from Sheila SERNA. Pt A&O x4, B/P 165/93. Hydralazine PRN & Zolpidem given. No signs of pain or distress. IV right wrist dry & intact. Pt c/o urinary frequency. Call light in reach, bed in lowest position, side rails up x2. Will continue to monitor.
--- NOTE | 2018-11-05 | NUR ---
HAND-OFF: Report given to KAT SERNA.
[2018-11-05] MEDS ORDERED: Zolpidem 5mg tab ORAL PRN (00:15)
[2018-11-05 04:00] VITALS: BP 142/75
[2018-11-05] MEDS: D5NS 1,000 ML IV SCH ×2 (04:04→16:55)
--- NOTE | 2018-11-05 07:32 | NUR ---
NURSE NOTES: Received report from KAREEM Borden. Rounding done with outgoing nurse. Patient a/o x4 and having breakfast. Denies any pain at this time. Call light within reach. Will continue to monitor.
--- NOTE | 2018-11-05 07:45 | NUR ---
HAND-OFF: Report given to Shahnaz RN. Pt is stable.
[2018-11-05 08:00] VITALS: BP 144/82
[2018-11-05 12:00] VITALS: BP 142/80
--- NOTE | 2018-11-05 13:53 | Infectious Diseases Prog Note ---
Assessment/Plan Assessment/Plan A; Proteus UTI Acute renal failure improving HPN BPH P: Continue Rocephin At time of discharge will change to PO Ciprofloxacin X 4 days Subjective ROS Limited/Unobtainable: No Constitutional: Reports: no symptoms HEENT: Reports: no symptoms Respiratory: Reports: no symptoms Cardiovascular: Reports: no symptoms Genitourinary: Reports: frequency Allergies: Coded Allergies: No Known Allergies (Unverified , 02/04/17) Objective Vital Signs Last 24 Hour Vital Signs Date Time Temp Pulse Resp B/P (MAP) Pulse Ox O2 Delivery O2 Flow Rate FiO2 11/05/18 12:00 99.0 73 18 142/80 (100) 98 11/05/18 09:00 Room Air 11/05/18 08:41 81 144/82 11/05/18 08:00 97.9 81 19 144/82 (102) 96 11/05/18 04:00 98.1 80 19 142/75 (97) 97 11/05/18 00:54 165/93 11/05/18 00:00 98.7 75 18 165/93 (117) 98 11/04/18 21:00 Room Air 11/04/18 20:00 98.7 72 16 142/71 (94) 98 11/04/18 17:31 66 148/80 11/04/18 16:00 99.5 66 16 148/80 (102) 97 Height (Feet): 5 Height (Inches): 10.00 Weight (Pounds): 180 General Appearance: no acute distress HEENT: mucous membranes moist Respiratory/Chest: normal breath sounds Cardiovascular: normal rate Abdomen: soft, non tender Extremities: no edema Neurologic/Psychiatric: alert, oriented x 3, responsive Microbiology Date/Time Source Procedure Growth Status 11/02/18 18:35 Blood Blood Culture - Preliminary NO GROWTH AFTER 48 HOURS Resulted 11/02/18 18:20 Blood Blood Culture - Preliminary NO GROWTH AFTER 48 HOURS Resulted 11/02/18 18:20 Urine,Clean Catch Urine Culture - Final Proteus Mirabilis Complete Current Medications Medications (Trade) Dose Ordered Sig/Luisa Route PRN Reason Start Time Stop Time Status Last Admin Dose Admin Acetaminophen (Tylenol) 500 mg Q4H PRN ORAL Mild Pain/Temp > 100.5 11/02/18 23:15 12/02/18 23:14 11/03/18 05:19 Amlodipine Besylate (Norvasc) 5 mg BID ORAL 11/04/18 18:00 12/04/18 08:59 11/05/18 08:41 Ceftriaxone Sodium 1 gm/ Dextrose 55 ml @ 110 mls/hr Q24H IVPB 11/03/18 20:00 11/10/18 19:59 11/04/18 21:04 Dextrose/Sodium Chloride 1,000 ml @ 75 mls/hr [id number] IV 11/02/18 22:15 12/02/18 22:14 11/05/18 04:04 Folic Acid (Folate) 3 mg DAILY ORAL 11/03/18 19:30 12/03/18 19:29 11/05/18 08:41 Hydralazine HCl (Apresoline) 25 mg Q4H PRN ORAL bp over 160 syst 11/03/18 18:00 12/03/18 17:59 11/05/18 00:54 Pantoprazole (Protonix) 40 mg EVERY 12 HOURS ORAL 11/03/18 21:00 12/03/18 20:59 11/05/18 08:41 Tamsulosin HCl (Flomax) 0.4 mg BEDTIME ORAL 11/03/18 21:00 12/03/18 20:59 11/04/18 21:31 Zolpidem Tartrate (Ambien) 5 mg HSPRN PRN ORAL Insomnia 11/05/18 00:15 11/12/18 00:14 11/05/18 00:35 Saulo Munoz MD Nov 05, 2018 13:53
--- NOTE | 2018-11-05 15:21 | Nephrology Progress Note ---
Assessment/Plan Problem List: (1) Renal insufficiency (2) UTI (urinary tract infection) Assessment: Proteus (3) Hyponatremia (4) Folic acid deficiency Assessment Renal insufficiency, acute on Chronic UTI (urinary tract infection / High Lactic: proteus HypoNatremia HTN Low Phos Low folate Low Albumin Plan Na Phos IV PO Folic acid Protonix Norvasc NS IV Monitor renal parameters avoid Nephrotoxics urine studies Subjective ROS Limited/Unobtainable: No Constitutional: Reports: malaise Objective Objective Last 24 Hour Vital Signs Date Time Temp Pulse Resp B/P (MAP) Pulse Ox O2 Delivery O2 Flow Rate FiO2 11/05/18 12:00 99.0 73 18 142/80 (100) 98 11/05/18 09:00 Room Air 11/05/18 08:41 81 144/82 11/05/18 08:00 97.9 81 19 144/82 (102) 96 11/05/18 04:00 98.1 80 19 142/75 (97) 97 11/05/18 00:54 165/93 11/05/18 00:00 98.7 75 18 165/93 (117) 98 11/04/18 21:00 Room Air 11/04/18 20:00 98.7 72 16 142/71 (94) 98 11/04/18 17:31 66 148/80 11/04/18 16:00 99.5 66 16 148/80 (102) 97 Intake and Output 11/04/18 11/05/18 19:00 07:00 Intake Total 500 ml 1317 ml Balance 500 ml 1317 ml Intake Oral 500 ml 400 ml IV Total 917 ml # Voids 10 10 # Bowel Movements 5 Height (Feet): 5 Height (Inches): 10.00 Weight (Pounds): 180 General Appearance: no apparent distress Cardiovascular: normal rate Respiratory/Chest: lungs clear Abdomen: soft Objective no change Claus Valle MD Nov 05, 2018 15:21
[2018-11-05 16:00] VITALS: BP 133/72
--- NOTE | 2018-11-05 16:00 | NUR ---
NURSE NOTES: Dr. Kahn ordered discharge going home. ordered stop home meds and take cipro 500mg bid for 4 days [address] prescription by Dr[address] Munoz.
[2018-11-05] MEDS ORDERED: Acetaminophen 500mg (ES) tab ORAL PRN (16:15)
[2018-11-05] MEDS ORDERED: CIPROFLOXA500 MG/5 M PO (16:39)
--- NOTE | 2018-11-05 17:00 | NUR ---
NURSE NOTES: Discharge instruction was given and belongings checked. Removed IV. Discharged accompanied by . Patient in stable condition.
--- NOTE | 2018-11-07 08:28 | Discharge Summary ---
Discharge Summary Discharge Summary _ DATE OF ADMISSION: 11/02/2018 DATE OF DISCHARGE: 11/05/2018 DISCHARGED BY: DR. Kahn REASON FOR ADMISSION: 73 years old male presented with complaints of urinary frequency and burning on urination. He denied fever and chills. He denied abdominal pain. Upon evaluation patient demonstrated low-grade fever of 100 ,blood pressure was elevated 157/91. Laboratory workup revealed leukocytosis WBC 13.1, stable hemoglobin hematocrit Sodium 132,.BUN 39 creatinine 1.7 ,lactic acid 4.9 Urinalysis was grossly positive for UTI. Chest x-ray revealed no acute cardiopulmonary pathology. Patient admitted for further management. CONSULTANTS: ID specialist Dr. Valencia client services representative Dr. Valle HOSPITAL COURSE: Patient admitted to medical surgical floor. Patient started on IV fluids with normal saline and empiric antibiotics. Renal parameters and electrolytes were closely monitored. Electrolytes were corrected as needed ( sodium, phosphorus); nephrotoxins were avoided . Urine studies were done. Mainframe Consultant and ID specialist closely followed. Urine culture revealed Proteus. Blood cultures were negative. Patient was on IV Rocephin while in the hospital . Blood pressure was managed with calcium channel romeo / Norvasc and dose was uptitrated. Hydralazine was on board as needed. Blood pressure stabilized. GI prophylaxis provided. Flomax was continued. Noted low folic acid , patient subsequently started on folic acid replacement . Hemoglobin and hematocrit stable. Patient clinically stabilized ; leukocytosis resolved ,no fevers. IV antibiotic was changed to oral ciprofloxacin to continue for 4 more days upon discharge as per ID recommendation. Sodium up to 138 , phosphorus 3.7. BUN 31 creatinine 1.3. Acute kidney injury and hyponatremia were likely due to dehydration and resolved with proper hydration. Patient clinically stabilized and was ready for discharge home . FINAL DIAGNOSES: Proteus UTI Acute renal failure on chronic renal insufficiency -resolved Dehydration Electrolyte abnormality( hyponatremia , hypophosphatemia) - resolved Lactic acidosis- resolved Hypertension BPH Folate deficiency DISCHARGE MEDICATIONS: See Medication Reconciliation list. DISCHARGE INSTRUCTIONS: Patient was discharged home . Follow up with primary care provider in one week. I have been assigned to dictate discharge summary for this account. I was not involved in the patient's management. Yolis Emery NP Nov 07, 2018 08:28
== END 2018-11-05 17:00 | disposition home or self-care (01) | DRG 690 ==
LOC: EMR 20:16 → 3E 20:19 → EDBEDREQ 20:49
DX: N39.0 Urinary tract infection, site not specified (principal); E87.1 Hypo-osmolality and hyponatremia; N17.9 Acute kidney failure, unspecified; E87.2 Acidosis; E86.0 Dehydration; K21.9 Gastro-esophageal reflux disease without esophagitis; N40.1 Benign prostatic hyperplasia with lower urinary tract symptoms; E53.8 Deficiency of other specified B group vitamins; B96.4 Proteus (mirabilis) (morganii) as the cause of diseases classified elsewhere; E88.09 Other disorders of plasma-protein metabolism, not elsewhere classified; I12.9 Hypertensive chronic kidney disease with stage 1 through stage 4 chronic kidney disease, or unspecified chronic kidney disease; N18.9 Chronic kidney disease, unspecified; E83.39 Other disorders of phosphorus metabolism; N40.0 Benign prostatic hyperplasia without lower urinary tract symptoms
CPT/HCPCS: 36415; 71045; 80053; 80061; 81003; 82607; 82728; 82746; 82977; 83036; 83540; 83550; 83605; 83735; 83880; 84100; 84300; 84443; 84484; 84550; 85025; 86140; 87040; 87086; 87181; 96361; 96365; 99285